=== PATIENT | female | born 1990 | race Caucasian/White ===

== ENCOUNTER 2017-05-29 17:23 | Emergency (ER) | payer OTHER ==
[2017-05-29 18:24] VITALS: BMI 25.9
[2017-05-29] MEDS ORDERED: Lactated Ringer's 1,000 ML IV SCH (18:30)
[2017-05-29 18:46] LABS: SQUAMOUS EPITHIAL 5 /hpf (0-5); URINE BACTERIA OCC (<OCC); URINE BILIRUBIN NEGATIVE (NEGATIVE); URINE BLOOD NEGATIVE (NEGATIVE); URINE CLARITY SLIGHTY-CLOUDY (Clear); URINE COLOR YELLOW (YELLOW); URINE GLUCOSE (UA) NEG (Normal); URINE LEUKOCYTE ESTERASE MOD Leu/uL (Negative); URINE PROTEIN NEGATIVE (NEGATIVE); URINE UROBILINOGEN 0.2-1.0 mg/dL (0.2-1.0)
--- NOTE | 2017-05-29 19:42 | OBHP ---
Datetime: 05/29/2017 18:24 IP Adm Impression: , intrauterine IP Admit Plan: Observation/Evaluation Admit Comment, IP Provider: CC: Ctx HPI: 26 YO @ 35.2wks IUP presents to [facility] for ctx. Pt states that cer ctx started around 10:3 0PM last night, and they have remained the same frequency, Q6-12 mins, and has gotten a little more i ntense then when they first started. Pt rates the pain as a 4/10 now. Endorsing some leaking of fluid s per vagina, but pt not sure of quantity. Small amount of mucus and small fecks of blood in it. Good FM, no VB and no obvious leaking of fluids. MD: Dr. Killian ObHx: prime, no STIs PMH: denies SurgH: denies SH: denies ETOH, smoking and illict drug use FH: denies Allergies: NKDA Meds: PNV PE: GEN: NAD Cardio: S1S2 no additional heart sounds Resp: clear breath sounds b/l Abdomen: Gravid, NT, BS+ Neuro: AAO x 3 Ext: no edema noted, NT Spec: pooling neg, Nitazine neg, some dischage noted Cervix: 1cm/Thick/High FM: 150, catagory I A/P: 26 YO @ 35.2wks IUP is evaluated for early labor. Membranes intact, cervix 1cm and thick and ctx noted on monitor. -continue FM -IV fluids -UA -will recheck in 1 hr -Pt has follow up apt with Dr. Killian on Wednesday. Pt seen with Dr. Cecil Herman, PGY I Pt was reevaluated at her bedside. She is s/p 1 liter of IV fluids Reports the intensity of pain has reduced. UA- Nitrite - Neg, LE mod, Proteins neg Pelvic check: Same( No change) Plan: D/c Home F/U with Dr Tran Labor Instructions given, Pelvic Type - PN: Adequate Extremities - PN: Normal Abdomen - PN: Normal Back - PN: Not Done Breast - PN: Not Done Lungs - PN: Normal Heart - PN: Normal Thyroid - PN: Not Done Neurologic - PN: Normal HEENT - PN: Normal General - PN: Normal FHR - Baseline A Provider: 150 Membranes, Provider: Intact Pool Provider: Negative Nitrazine Provider: Negative EGA AdmitDate IP: 35.2 Vital Signs Provider: Reviewed; Within Normal Limits IP Chief Complaint: Uterine contractions NICHD Variability Prov Fetus A: Moderate 6-25bpm NICHD Accel Fetus A IP Provider: 15X15 FHR Category Provider Fetus A: Category I Dilatation, Provider: 1 Effacement, Provider: Thick Station, Provider: High Genitourinary Exam: Normal DTRs - PN: Not Done
[2017-05-30 02:10] VITALS: BP 120/77; PULSE 102; RESP 18; TEMP 98.6; O2SAT 100
== END 2017-05-29 19:45 | disposition home or self-care (01) ==
LOC: H.EROB2 17:23
DX: O47.03 False labor before 37 completed weeks of gestation, third trimester (principal); O26.93 Pregnancy related conditions, unspecified, third trimester; R10.2 Pelvic and perineal pain; Z3A.35 35 weeks gestation of pregnancy
CPT/HCPCS: 81003; 96360; 99283; J7120

== ENCOUNTER 2017-05-31 12:32 | Inpatient (IN) | payer OTHER ==
[2017-05-31] MEDS ORDERED: AMPicillin 2 GM in Sodium Chloride 0.9% 100 ML IVPB STA (12:47)
[2017-05-31] MEDS: Lactated Ringer's 1,000 ML IV SCH ×3 (12:50→22:40)
[2017-05-31] MEDS ORDERED: Oxytocin 30 units/LR 500ML 30 U/500 ML BAG IV SCH (13:00)
[2017-05-31 13:34] LABS: BASO % 0.2 % (0.0-2.0); EOS # 0.1 K/uL (0.0-0.7); EOS % 0.9 % (0.0-4.0); HEMOGLOBIN 12.8 g/dL (12.0-16.0); LYMPH # 1.5 K/uL (1.0-4.3); LYMPH % 10.2 % (20.0-40.0); MEAN CORPUSCULAR HEMOGLOBIN 29.2 pg (27.0-31.0); MEAN CORPUSCULAR HGB CONC 33.6 g/dL (33.0-37.0); MEAN PLATELET VOLUME 8.3 fl (7.2-11.7); MONO % 6.9 % (0.0-10.0); NEUT # 12.4 K/uL (1.8-7.0); NEUT % 81.8 % (50.0-75.0); RBC 4.39 Mil/uL (3.80-5.20); WHITE BLOOD COUNT 15.2 K/uL (4.8-10.8)
[2017-05-31] MEDS: AMPicillin 1 GM in Sodium Chloride 0.9% 100 ML IVPB SCH ×2 (17:10→21:36)
[2017-05-31] MEDS ORDERED: Bupivacaine HCl 0.25% PF (10 ml) Inj ONE (18:31)
[2017-05-31] MEDS ORDERED: Fentanyl/Bupivacaine HCl 250 ML EPI ONE (23:08)
--- NOTE | 2017-06-01 00:15 | OBHP ---
Datetime: 05/31/2017 12:45 IP Adm Impression: , intrauterine IP Admit Plan: Admit to unit; Initiate labor protocol Pelvic Type - PN: Adequate Extremities - PN: Normal Abdomen - PN: Normal Back - PN: Not Done Breast - PN: Not Done Lungs - PN: Normal Heart - PN: Normal Thyroid - PN: Not Done Neurologic - PN: Normal HEENT - PN: Normal General - PN: Normal Presentation-Admit: Vertex FHR - Baseline A Provider: 150 Membranes, Provider: Intact EGA AdmitDate IP: 35.4 Vital Signs Provider: Reviewed; Within Normal Limits IP Chief Complaint: Uterine contractions NICHD Variability Prov Fetus A: Moderate 6-25bpm NICHD Accel Fetus A IP Provider: [id number] FHR Category Provider Fetus A: Category I Dilatation, Provider: 5 Effacement, Provider: 80 Station, Provider: -3 Genitourinary Exam: Not Done DTRs - PN: Not Done Datetime: 05/31/2017 12:40 Admit Comment, IP Provider: CC: Ctx HPI: 26 YO @ 35.4wks IUP presents to [facility] for ctx. Pt states that cer ctx started wednesday, b ut over the weekend they decreased in intensity but are closer in frequency. Pt endorisng alot of pre ssure when walking. Small amount of mucus and small fecks of blood in it. Good FM, no VB and no obvio us leaking of fluids. MD: Dr. Johns ObHx: prime, no STIs PMH: denies SurgH: denies SH: denies ETOH, smoking and illict drug use FH: denies Allergies: NKDA Meds: PNV PE: GEN: NAD Cardio: S1S2 no additional heart sounds Resp: clear breath sounds b/l Abdomen: Gravid, NT, BS+ Neuro: AAO x 3 Ext: no edema noted, NT Spec: pooling neg, Nitazine neg, some dischage noted Cervix: 5/-3 FM: 150, catagory I A/P: 26 YO @ 35.4wks IUP is admitted for active labor. GBS unknown. -admit to L_D -IV fluids -blood work -anesthesiology -continue FM -ABX for gbs unk Pt discussed with Dr. Ellen Herman, PGY I ob addendum: pt seen _ examined by me. agree with above assessment and plan with follwing clarifications and ad ditions Pt referred to [facility] by dr johns after being seen in office today and pelvic exam showed pt to be 5cm/80/-3. Following eval pt d/w dr stevens who recommends admission and augmentation. p. plan of care d/w pt. dr johns notified Contraction Comments Provider: irreg NICHD Decel Fetus A IP Provider: None
--- NOTE | 2017-06-01 00:19 | OBADHP ---
Datetime: 05/31/2017 12:45 Pelvic Type - PN: Adequate Extremities - PN: Normal Abdomen - PN: Normal Back - PN: Not Done Breast - PN: Not Done Lungs - PN: Normal Heart - PN: Normal Thyroid - PN: Not Done Neurologic - PN: Normal HEENT - PN: Normal General - PN: Normal Presentation-Admit: Vertex FHR - Baseline A Provider: 150 Membranes, Provider: Intact Vital Signs Provider: Reviewed; Within Normal Limits IP Chief Complaint: Uterine contractions NICHD Variability Prov Fetus A: Moderate 6-25bpm NICHD Accel Fetus A IP Provider: [id number] FHR Category Provider Fetus A: Category I Dilatation, Provider: 5 Effacement, Provider: 80 Station, Provider: -3 Genitourinary Exam: Not Done DTRs - PN: Not Done EGA AdmitDate IP: 35.4 IP Adm Impression: , intrauterine IP Admit Plan: Admit to unit; Initiate labor protocol Datetime: 05/31/2017 12:40 Admit Comment, IP Provider: CC: Ctx HPI: 26 YO @ 35.4wks IUP presents to [facility] for ctx. Pt states that cer ctx started wednesday, b ut over the weekend they decreased in intensity but are closer in frequency. Pt endorisng alot of pre ssure when walking. Small amount of mucus and small fecks of blood in it. Good FM, no VB and no obvio us leaking of fluids. MD: Dr. Killian ObHx: prime, no STIs PMH: denies SurgH: denies SH: denies ETOH, smoking and illict drug use FH: denies Allergies: NKDA Meds: PNV PE: GEN: NAD Cardio: S1S2 no additional heart sounds Resp: clear breath sounds b/l Abdomen: Gravid, NT, BS+ Neuro: AAO x 3 Ext: no edema noted, NT Spec: pooling neg, Nitazine neg, some dischage noted Cervix: 5/-3 FM: 150, catagory I A/P: 26 YO @ 35.4wks IUP is admitted for active labor. GBS unknown. -admit to L_D -IV fluids -blood work -anesthesiology -continue FM -ABX for gbs unk Pt discussed with Dr. Ellen Herman, PGY I ob addendum: pt seen _ examined by me. agree with above assessment and plan with follwing clarifications and ad ditions. Patient was referred to OB D for evaluation by Dr. Killian. She had presented to the [facility] office today for OB visit and complained with cramping and irregular contractions Dr. rocha t exam showed the patient to be 5 cm and 80% effaced and so she was referred here for further managem ent. Following evaluation of the patient, pt was discussed with who recommended augmentat ion and delivery. The plan of care and indications for augmentation were discussed with patient. Dr. Killian was notified of Karla's recommendation Contraction Comments Provider: irreg NICHD Decel Fetus A IP Provider: None Datetime: 05/29/2017 18:24 Pool Provider: Negative Nitrazine Provider: Negative
[2017-06-01] MEDS: AMPicillin 1 GM in Sodium Chloride 0.9% 100 ML IVPB SCH ×4 (01:28→09:40)
[2017-06-01] MEDS: Lactated Ringer's 1,000 ML IV SCH ×3 (01:31→05:50)
--- NOTE | 2017-06-01 08:28 | OBHP ---
Datetime: 05/31/2017 12:45 Admit Comment, IP Provider: CC: Ctx HPI: 26 YO @ 35.4wks IUP presents to [facility] for ctx. Pt states that cer ctx started wednesday, ut over the weekend they decreased in intensity but are closer in frequency. Pt endorisng alot of pre ssure when walking. Small amount of mucus and small fecks of blood in it. Good FM, no VB and no obvio us leaking of fluids. MD: Dr. Killian ObHx: prime, no STIs PMH: denies SurgH: denies SH: denies ETOH, smoking and illict drug use FH: denies Allergies: NKDA Meds: PNV PE: GEN: NAD Cardio: S1S2 no additional heart sounds Resp: clear breath sounds b/l Abdomen: Gravid, NT, BS+ Neuro: AAO x 3 Ext: no edema noted, NT Cervix: 5/-3 FM: 150, catagory I Bedside u/s: vertex A/P: 26 YO @ 35.4wks IUP is admitted for active labor. GBS unknown. -admit to L_D -IV fluids -blood work, third tri labs -anesthesiology -continue FM -ABX for gbs unk Pt discussed with Dr. Ellen Goddardum, PGY I OB attending addendum: pt seen _ examined by me. agree with above assessment and plan with follwing clarifications and ad ditions. Patient was referred to OB D for evaluation by Dr. Killian. She had presented to the [facility] office today for OB visit and complained with cramping and irregular contractions Dr. josefina orta exam showed the patient to be 5 cm and 80% effaced and so she was referred here for further managem ent. Following evaluation of the patient, pt was discussed with who recommended augmentat ion and delivery. The plan of care and indications for augmentation were discussed with patient. Dr. Killian was notified of Karla's recommendation EGA AdmitDate IP: 35.4
--- NOTE | 2017-06-01 08:49 | OBPPN ---
Datetime: 06/01/2017 08:46 PP Progress Note Prov: Pernieal laceration was repaired by me...see Centricity note - MARY
[2017-06-01] MEDS ORDERED: Oxytocin 30 units/LR 500ML 30 UNITS/500 ML BAG IV ONE (09:57)
[2017-06-01] MEDS ORDERED: Oxycodone/Acetaminophen 5/325 mg Tab PO PRN (11:12)
[2017-06-01] MEDS: Benzocaine/Menthol SPRAY TOP PRN (17:29)
[2017-06-02 06:36] LABS: HEMOGLOBIN 9.5 g/dL (12.0-16.0); MEAN CELL VOLUME 88.3 fl (81.0-99.0); MEAN CORPUSCULAR HGB CONC 32.9 g/dL (33.0-37.0); RBC 3.27 Mil/uL (3.80-5.20); RED CELL DISTRIBUTION WIDTH 14.4 % (11.5-14.5); WHITE BLOOD COUNT 14.3 K/uL (4.8-10.8)
--- NOTE | 2017-06-02 11:10 | OBPPN ---
Datetime: 06/02/2017 11:04 PP Pain Prov: Within normal limits PP Nausea Prov: Denies PP Flatus Prov: Yes PP Breasts Prov: Not Done PP Heart Prov: Normal PP Lungs Prov: Normal PP Abdomen/Uterus Prov: Not Done PP Lochia Prov: Not Done PP Vulva/Perineum Prov: Not Done PP CVA Tenderness Prov: Normal PP Extremities Prov: Normal PP Impression Prov: Normal progression PP Plan Prov: Continue present management PP Progress Note Prov: Patient doing well ambulating tolerating diet and pain well controlled Vital signs stable afebrile Uterus firm below the umbilicus Extremities no Homans day #1 Encourage ambulation, regular diet, analgesia as needed Vital Signs Provider PP: Reviewed
[2017-06-03] MEDS: Benzocaine/Menthol SPRAY TOP PRN (08:26)
--- NOTE | 2017-06-03 11:01 | OBPPN ---
Datetime: 06/03/2017 10:58 PP Pain Prov: Within normal limits PP Nausea Prov: Denies PP Flatus Prov: Yes PP BM Prov: Yes PP Breasts Prov: Normal PP Heart Prov: Normal PP Lungs Prov: Normal PP Abdomen/Uterus Prov: Normal PP Lochia Prov: Normal PP Vulva/Perineum Prov: Normal PP CVA Tenderness Prov: Normal PP Extremities Prov: Normal PP C/S Incision Prov: Not Applicable PP Progress Prov: Normal PP Comments Phys Exam Prov: Uterus firm, below umbilicus No deep tenderness bilaterally PP Impression Prov: Normal progression PP Plan Prov: Continue present management PP Progress Note Prov: day #2 status post normal spontaneous vaginal delivery, patient re covering well Patient discharged home with precautions given Patient will follow up in office in 6 weeks for visit IP PP Procedures: None Vital Signs Provider PP: Reviewed; Within Normal Limits
--- NOTE | 2017-06-03 11:05 | OBDCSUM ---
Datetime: 06/03/2017 11:00 Discharged to, Provider: Home Follow up at, Provider: Dr. Killian Disch Instr Activity: Normal activity Disch Instr Diet: Regular Discharge Instructions, Provider: Routine instructions given Discharge Diagnosis, Provider: Labor; Delivery Discharge Time: 06/03/2017 11:00 Follow up in weeks, Provider: 6 weeks Disch Referrals: None Contraception discussed, Prov: Yes Disch Activity Restrictions: Nothing in vagina - [place], tampons, douche Contraception after Delivery: Undecided
[2017-06-03 19:42] VITALS: BP 112/71; PULSE 101; RESP 20; TEMP 97.4; O2SAT 100
== END 2017-06-03 14:30 | disposition home or self-care (01) | DRG 775 ==
LOC: H.EROB2 12:32 → H.EROB 12:34 → H.L&D 12:47 → H.EROB2 13:34 → H.OB/GYN 06-01 11:30
PROVIDERS: ADMIT Obstetrics & Gynecology; ATTEND Obstetrics & Gynecology
PROC: 10E0XZZ Delivery of Products of Conception, External Approach (ICD-10-PCS; principal; 2017-05-31)
PROC: 4A1HXCZ Monitoring of Products of Conception, Cardiac Rate, External Approach (ICD-10-PCS; 2017-05-31)
PROC: 0HQ9XZZ Repair Perineum Skin, External Approach (ICD-10-PCS; 2017-05-31)
DX: O60.14X0 Preterm labor third trimester with preterm delivery third trimester, not applicable or unspecified (principal); Z37.0 Single live birth; Z3A.35 35 weeks gestation of pregnancy; O70.0 First degree perineal laceration during delivery

== ENCOUNTER → 2017-05-31 12:47 | Emergency (ER) | payer OTHER | LOC: H.ER 12:47 | DX: O60.14X0 Preterm labor third trimester with preterm delivery third trimester, not applicable or unspecified (principal); Z3A.35 35 weeks gestation of pregnancy ==